=== PATIENT | female | born 1995 | race Caucasian/White ===

== ENCOUNTER 2024-08-31 09:06 | Emergency (ER) | payer OTHER, SELFPAY ==
[2024-08-31 09:15] VITALS: BP 119/71; PULSE 93; RESP 16; TEMP 37.1; O2SAT 100
[2024-08-31 09:34] LABS: EDSTREPNEGPOS1 Negative (Negative)
--- NOTE | 2024-08-31 09:49 | ED.GENADULT ---
HPI - General Adult General Chief complaint: Upper Respiratory Infection Stated complaint: throat/blemish on face Source: patient Mode of arrival: ambulatory Limitations: no limitations History of Present Illness HPI narrative: Patient presents for evaluation of a sore throat. Symptom onset 2 days ago. Initially she experienced pruritis but it has advanced to pain. She reports visualizing white exudate in her posterior pharynx. She reports chills and feeling feverish , although she has not actually checked her temperature. No nausea, vomiting or diarrhea. She is not aware of any sick contacts. She also reports a skin lesion to right side of her face. She states she initially had a pimple on the area. It has now progressed to a scaling lesion with crusted drainage. She has tried putting on lotion and it causes a burning sensation. Related Data Allergies Allergy/AdvReac Type Severity Reaction Status Date / Time No Known Allergies Allergy Unknown Unverified 06/03/15 14:52 Review of Systems Review of Systems: CONSTITUTIONAL: Reports chills and feeling ?feverish? without objective fever. EYES: Denies visual changes, redness, or discharge. ENT: Reports sore throat. Denies rhinorrhea, congestion, or otalgia. CARDIOVASCULAR: Denies chest pain, palpitations, or edema. RESPIRATORY: Denies cough or dyspnea. GASTROINTESTINAL: Denies abdominal pain, nausea, vomiting, or diarrhea. GENITOURINARY: Denies dysuria or hematuria. SKIN: Reports right sided facial skin lesion MUSCULOSKELETAL: Reports generalized body aches NEUROLOGIC: Denies headache, numbness, dizziness, or weakness. PSYCHIATRIC: Denies anxiety or depression. [facility] Past Medical History Medical History No pertinent past medical history Surgical History Surgical History No pertinent past surgical history Family History Family History Mother Family history non-contributory Social History Social History Living arrangements: with family Gender identity (if verbalized by the patient): Female Sexual Orientation (if Verbalized by the Patient): Straight or Heterosexual Spiritual care concerns: No Exam Narrative: GENERAL: Well-appearing, well-nourished, and in no acute distress. HEAD: Normocephalic, atraumatic. EYES: PERRLA and EOMI. ENT: Nares clear, no rhinorrhea or epistaxis. Mucous membranes moist. Bilateral tonsillar enlargement and erythema with white exudate. Uvula is midline. Bilateral TMs pearly [place] nonbulging NECK: Supple. No adenopathy or masses. No carotid bruits or JVD CHEST: Clear to auscultation. No respiratory distress. No wheezes rales or rhonchi HEART: Regular rate and rhythm. No murmur heard. Normal peripheral pulses. ABDOMEN: Soft, nontender, nondistended, normal active bowel sounds. EXTREMITIES: Normal range of motion. No edema. SKIN: There is a slightly raised skin lesion to right side of her face that is approximately 2cm in size with scaling and crusted serous drainage NEURO: No focal deficits. Alert and oriented x3. PSYCH: Normal mood and affect. Course Course Emergency Course: This is a 29-year-old female who presented for evaluation of sore throat and skin lesion. Her strep was negative. She does have white exudate in her posterior pharynx. Will place on cephalexin which should treat strep if false negative. I will also treat her skin lesion which is consistent with impetigo. In the event that lesion is not improve, she should follow up with dermatology. She should go to the ER for worsening symptoms. Pt in agreement with plan of care. Level of Care: Express Care Visit Vital Signs Vital signs: Vital Signs Temperature 37.1 C 08/31/24 09:15 Pulse Rate 93 08/31/24
== END 2024-08-31 09:57 | disposition home or self-care (01) ==
PROVIDERS: Emergency Provider Nurse Practitioner; PCP Family Medicine
DX: L01.00 Impetigo, unspecified (principal); J02.9 Acute pharyngitis, unspecified
CPT/HCPCS: 87081; 87880; 99213; G0463